=== PATIENT | male | born 1995 | race American Indian/Alaskan Native ===

== ENCOUNTER 2021-05-21 10:20 | Emergency (ER) | payer SELFPAY ==
[2021-05-21 10:24] VITALS: BP 130/68
--- NOTE | 2021-05-21 11:50 | XRay Report ---
XR wrist 3+V LT INDICATION: fall, pain. COMPARISON: No relevant prior imaging study available. FINDINGS: There is a minimally displaced dorsal triquetral fracture with adjacent soft tissue swelling dorsally . No additional fractures are seen. No dislocation. IMPRESSION: 1. Minimally displaced dorsal triquetral fracture. Signer Name: Lv Kruse MD Signed: 05/21/2021 11:40 AM Workstation Name: [id number]
--- NOTE | 2021-05-21 12:07 | Emergency Department Report ---
ED Upper Extremity Inj HPI - General Chief Complaint: Extremity Injury, Upper Stated Complaint: WRIST Time Seen by Provider: 05/21/21 10:54 Source: patient Mode of arrival: Ambulatory Limitations: No Limitations - History of Present Illness Initial Comments: 25-year-old male presents to ED with left wrist pain since yesterday. Patient reports fall while riding a skateboard. Patient currently complaining of pain to the left wrist. Patient states he is left-handed. He denies any numbness or tingling in the hand or fingers. MD Complaint: Injury to:: left, wrist -: Last night Other Injuries: none Handedness: left Improves With: immobilization Worsens With: movement of extremity Context: fall Associated Symptoms: denies: weakness, numbness - Related Data Previous Rx's Medication Instructions Recorded Last Taken Type Naproxen [Naprosyn] 500 mg PO BID #20 tablet 05/21/21 Unknown Rx traMADoL [Ultram] 50 mg PO Q6HR PRN #7 tablet 05/21/21 Unknown Rx Allergies Allergy/AdvReac Type Severity Reaction Status Date / Time No Known Allergies Allergy Verified 05/21/21 10:25 ED Review of Systems ROS: Stated complaint: WRIST Other details as noted in HPI Comment: All other systems reviewed and negative Musculoskeletal: as per HPI Neurological: denies: weakness, numbness ED Past Medical Hx - Medications Home Medications: Home Medications Medication Instructions Recorded Confirmed Last Taken Type Naproxen [Naprosyn] 500 mg PO BID #20 tablet 05/21/21 Unknown Rx traMADoL [Ultram] 50 mg PO Q6HR PRN #7 tablet 05/21/21 Unknown Rx ED Physical Exam - General Limitations: No Limitations General appearance: alert, in no apparent distress - Head Head exam: Present: atraumatic, normocephalic - Eye Eye exam: Present: normal appearance, EOMI - ENT ENT exam: Present: mucous membranes moist - Neck Neck exam: Present: normal inspection - Respiratory Respiratory exam: Present: normal lung sounds bilaterally. Absent: respiratory distress - Cardiovascular Cardiovascular Exam: Present: regular rate, normal rhythm - GI/Abdominal GI/Abdominal exam: Absent: distended - Extremities Exam Extremities exam: Present: other (Minimal swelling to the left wrist, with some tenderness on the ulnar aspect of the wrist.) - Neurological Exam Neurological exam: Present: alert, oriented X3. Absent: motor sensory deficit - Psychiatric Psychiatric exam: Present: normal affect, normal mood - Skin Skin exam: Present: warm, dry, intact, normal color ED Course Vital Signs 05/21/21 10:22 Temperature 98.2 F Pulse Rate 85 Respiratory 18 Rate Blood Pressure 130/68 [Left] O2 Sat by Pulse 100 Oximetry ED Medical Decision Making - Radiology Data Radiology results: report reviewed, image reviewed - Medical Decision Making X-ray shows triquetrium fracture. Volar splint applied. Outpatient follow-up advised, return precautions given. - Differential Diagnosis Fracture, sprain Critical care attestation.: If time is entered above; I have spent that time in minutes in the direct care of this critically ill patient, excluding procedure time. ED Disposition Clinical Impression: Fracture of triquetrum of left wrist Disposition: HOME / SELF CARE / HOMELESS Is pt being admited?: No Condition: Stable Instructions: Cast or Splint Care, Adult Prescriptions: Naproxen [Naprosyn] 500 mg PO BID #20 tablet traMADoL [Ultram] 50 mg PO Q6HR PRN #7 tablet PRN Reason: Pain Referrals: DINA SALCIDO MD [Staff Physician] - 3-5 Days Time of Disposition: 12:07
== END 2021-05-21 12:50 | disposition home or self-care (01) ==
LOC: ED 10:20
DX: S62.112A Displaced fracture of triquetrum [cuneiform] bone, left wrist, initial encounter for closed fracture (principal); W18.39XA Other fall on same level, initial encounter; Y93.51 Activity, roller skating (inline) and skateboarding; Y92.89 Other specified places as the place of occurrence of the external cause; Y99.8 Other external cause status
CPT/HCPCS: 99283